=== PATIENT | male | born 1980 | race Caucasian/White ===

== ENCOUNTER 2020-06-27 11:26 | Emergency (ER) | payer MEDICAID ==
[~2020-06-27] VITALS: Ht 177.8 cm; Wt 88.6 kg
[2020-06-27 13:20] VITALS: BP 152/106
[2020-06-27] MEDS ORDERED: ketorolac tromethamine 15mg/ml inj. IM ONE (13:25)
[2020-06-27] MEDS ORDERED: LIDOcaine 5% patch TP SCH (13:30)
[2020-06-27] MEDS ORDERED: diazepam 5mg tablet PO ONE (13:40)
== END 2020-06-27 14:06 | disposition home or self-care (01) ==
LOC: ER 11:27
DX: M54.6 Pain in thoracic spine (principal); M25.512 Pain in left shoulder; M54.2 Cervicalgia; R06.02 Shortness of breath; I10 Essential (primary) hypertension; Z72.89 Other problems related to lifestyle; Z91.013 Allergy to seafood
CPT/HCPCS: 93005; 96372; 99283; J1885

== ENCOUNTER 2023-04-29 17:36 | Emergency (ER) | payer MEDICAID ==
[~2023-04-29] VITALS: Ht 180.3 cm; Wt 103.0 kg
[2023-04-29 17:49] VITALS: TEMP 98.8
[2023-04-29 18:08] LABS: BASOPHILS % (AUTO) 0.4 % (0-1); EOSINOPHILS % (AUTO) 0 % (0-6); HEMATOCRIT 49.7 % (42.0-52.0); HEMOGLOBIN 16.9 g/dl (14.0-17.9); LYMPHOCYTES % (AUTO) 7.4 % (21-51); MEAN CORPUSCULAR HEMOGLOBIN 30.7 PG (27.0-31.0); MEAN CORPUSCULAR VOLUME 90.2 FL (78-98); MEAN PLATELET VOLUME 8.3 FL (7.4-10.4); MONOCYTES # (AUTO) 1.4 X10'3 (0-0.9); NEUTROPHILS # (AUTO) 10.5 X10'3 (1.8-7.7); NEUTROPHILS % (AUTO) 81.2 % (42-75); PLATELET COUNT 234 X10'3 (140-440); RED CELL DISTRIBUTION WIDTH 13.9 % (11.5-14.5); WHITE BLOOD COUNT 12.9 X10'3 (4.5-11.0)
[2023-04-29 18:20] LABS: ALANINE AMINOTRANSFERASE 46 U/L (12-78); ALKALINE PHOSPHATASE 88 IU/L (46-116); ANION GAP 11 (8-16); ASPARTATE AMINO TRANSFERASE 24 U/L (10-37); BILIRUBIN,TOTAL 0.6 MG/DL (0.1-1.0); BLOOD UREA NITROGEN 14 MG/DL (7-18); BUN/CREATININE RATIO 6.2 (10.0-20.0); CALCIUM 9.5 MG/DL (8.5-10.1); CHLORIDE 101 MMOL/L (99-107); CREATININE 2.27 MG/DL (0.60-1.10); GLUCOSE 130 MG/DL (70-104); SODIUM 136 MMOL/L (135-145); TOTAL CARBON DIOXIDE 24.5 MMOL/L (24-32); TOTAL PROTEIN 8.1 G/DL (6.4-8.2); eCRCL 44 ML/MIN; eGFR 32 ML/MIN
[2023-04-29 18:29] LABS: PRO BRAIN NATRIURETIC PEPTIDE 41 PG/ML (0-125)
[2023-04-29 21:50] VITALS: BP 126/84; PULSE 108; RESP 18; O2SAT 100
[2023-04-29] MEDS ORDERED: NIRM1TAB PO (22:00)
== END 2023-04-29 22:15 | disposition home or self-care (01) ==
LOC: ER 17:37
DX: J20.9 Acute bronchitis, unspecified (principal); I10 Essential (primary) hypertension; Z91.013 Allergy to seafood
CPT/HCPCS: 36415; 71045; 80053; 83880; 84484; 85025; 93005; 99285

== ENCOUNTER 2024-01-05 22:22 | Emergency (ER) | payer MEDICAID ==
[~2024-01-05] VITALS: Ht 177.8 cm; Wt 100.0 kg
[~2024-01-05 22:22] MED LIST: NIRM1TAB PO
[2024-01-05 23:10] LABS: BASOPHILS # (AUTO) 0.1 X10'3 (0-0.2); BASOPHILS % (AUTO) 0.8 % (0-1); EOSINOPHILS # (AUTO) 0.5 X10'3 (0-0.9); EOSINOPHILS % (AUTO) 4.1 % (0-6); HEMATOCRIT 44.6 % (42.0-52.0); HEMOGLOBIN 15.3 g/dl (14.0-17.9); LYMPHOCYTES # (AUTO) 2.5 X10'3 (1.1-4.8); LYMPHOCYTES % (AUTO) 22.3 % (21-51); MEAN CORPUSCULAR HEMOGLOBIN 30.5 PG (27.0-31.0); MEAN CORPUSCULAR HGB CONC 34.3 g/dL (33.0-36.5); MEAN PLATELET VOLUME 7.5 FL (7.4-10.4); MONOCYTES # (AUTO) 0.7 X10'3 (0-0.9); MONOCYTES % (AUTO) 5.8 % (2-12); NEUTROPHILS # (AUTO) 7.5 X10'3 (1.8-7.7); PLATELET COUNT 296 X10'3 (140-440); RED BLOOD COUNT 5.01 X10'6 (4.70-6.10); RED CELL DISTRIBUTION WIDTH 13.7 % (11.5-14.5); WHITE BLOOD COUNT 11.2 X10'3 (4.5-11.0)
[2024-01-05 23:15] LABS: ALBUMIN 4.1 G/DL (3.4-5.0); ANION GAP 10 (8-16); BLOOD UREA NITROGEN 20 MG/DL (7-18); BUN/CREATININE RATIO 13.8 (10.0-20.0); CALCIUM 9.5 MG/DL (8.5-10.1); CHLORIDE 105 MMOL/L (99-107); CREATININE 1.45 MG/DL (0.60-1.10); GLUCOSE 96 MG/DL (70-104); PRO BRAIN NATRIURETIC PEPTIDE < 30 PG/ML (0-125); SODIUM 140 MMOL/L (135-145); TOTAL CARBON DIOXIDE 24.8 MMOL/L (24-32); eCRCL 66 ML/MIN; eGFR 53 ML/MIN
[2024-01-05] MEDS: LORazepam 1 MG tablet PO ONE (23:49)
[2024-01-06 00:16] VITALS: BP 146/100; PULSE 74; RESP 18; TEMP 98; O2SAT 98
== END 2024-01-06 00:22 | disposition home or self-care (01) ==
LOC: ER 22:22
DX: F41.9 Anxiety disorder, unspecified (principal); I10 Essential (primary) hypertension; Z91.013 Allergy to seafood; Z79.899 Other long term (current) drug therapy
CPT/HCPCS: 36415; 71045; 80048; 83880; 84484; 85025; 93005; 99285